=== PATIENT | male | born 1980 | race African-American/Black ===

== ENCOUNTER 2016-07-31 11:24 | Emergency (ER) | payer SELFPAY ==
[~2016-07-31] VITALS: Ht 180.3 cm; Wt 70.0 kg
[2016-07-31 11:30] VITALS: BP 132/92
[2016-07-31] MEDS ORDERED: LEVETIRACETAM 500MG TABLET PO ONE (12:00)
[2016-07-31] MEDS ORDERED: BACITRACIN ZINC OINT UDPKT TOP ONE (13:15)
[2016-07-31] MEDS ORDERED: LIDOCAINE HCL 1% 20ML VIAL (Pyxis) INJ MC ONE (13:15)
== END 2016-07-31 15:08 | disposition home or self-care (01) ==
LOC: ER 14:45
DX: R56.9 Unspecified convulsions (principal)
CPT/HCPCS: 99283